=== PATIENT | female | born 1935 | race Caucasian/White ===

== ENCOUNTER → 2018-07-07 | Outpatient (CLI) | payer MEDICARE ==
[~2018-07-07] MED LIST: EUCERIN ORIGIN250 ML TOP; Pred Forte1 ML BOTHEYES; TEMOVATE15 GM TOP; XARELTO15 MG PO
== END | disposition home or self-care (01) ==
LOC: PLD 13:34 → LAB SHORT 13:34
DX: C44.310 Basal cell carcinoma of skin of unspecified parts of face (principal)
CPT/HCPCS: 88305

== ENCOUNTER → 2018-11-03 | Outpatient (CLI) | payer MEDICARE | END | disposition home or self-care (01) | LOC: PLD 12:19 → LAB SHORT 12:19 | DX: D48.5 Neoplasm of uncertain behavior of skin (principal) | CPT/HCPCS: 88305 ==

== ENCOUNTER → 2018-12-01 | Outpatient (CLI) | payer MEDICARE | END | disposition home or self-care (01) | LOC: LAB SHORT 13:52 → PLD 13:52 | DX: C44.612 Basal cell carcinoma of skin of right upper limb, including shoulder (principal) | CPT/HCPCS: 88305 ==

== ENCOUNTER 2019-08-25 12:12 | Day surgery (SDC) | payer MEDICARE ==
[~2019-08-25] VITALS: Ht 160 cm; Wt 71.2 kg
[~2019-08-25 12:12] MED LIST changes: +Aspirin EC81 MG PO; +COENZYME Q10100 MG PO; +FLAX SEED OIL1 EACH PO; +XARELTO20 MG PO
--- NOTE | 2019-08-25 12:57 | NUR ---
08/25/[address] OVALLE THAT THE PT. TOOK XARELTO 08/23, ASA 08/25 DR SAYS OK.
[2019-08-25] MEDS ORDERED: GENPREOPSU (13:09)
--- NOTE | 2019-08-25 14:39 | NUR ---
08/25/19 1439 Ofelia Trent 1ML NORMAL SALINE USED TO ELEVATE SIGMOID POLYP
== END 2019-08-25 15:15 | disposition home or self-care (01) ==
LOC: ORSCSDS 12:12
PROVIDERS: Internal Medicine Gastroenterology
PROC: 0D5N8ZZ Destruction of Sigmoid Colon, Via Natural or Artificial Opening Endoscopic (ICD-10-PCS; principal; 2019-08-25 14:00)
PROC: 0DBN8ZX Excision of Sigmoid Colon, Via Natural or Artificial Opening Endoscopic, Diagnostic (ICD-10-PCS; principal; 2019-08-25 14:00)
PROC: 0DJ08ZZ Inspection of Upper Intestinal Tract, Via Natural or Artificial Opening Endoscopic (ICD-10-PCS; principal; 2019-08-25 14:00)
DX: R19.5 Other fecal abnormalities (principal); D12.5 Benign neoplasm of sigmoid colon; Q27.33 Arteriovenous malformation of digestive system vessel; K44.9 Diaphragmatic hernia without obstruction or gangrene; K64.8 Other hemorrhoids; K64.4 Residual hemorrhoidal skin tags; Z79.899 Other long term (current) drug therapy; Z79.01 Long term (current) use of anticoagulants; G47.33 Obstructive sleep apnea (adult) (pediatric); Z79.82 Long term (current) use of aspirin
CPT/HCPCS: 88305; J2704; J7120

== ENCOUNTER → 2020-04-14 | Outpatient (CLI) | payer MEDICARE ==
[~2020-04-14] MED LIST changes: +GENPREOPSU
== END | disposition home or self-care (01) ==
LOC: PLD 10:50 → LAB SHORT 10:50
DX: D48.5 Neoplasm of uncertain behavior of skin (principal)
CPT/HCPCS: 88305

== ENCOUNTER → 2020-05-03 | Outpatient (CLI) | payer MEDICARE | END | disposition home or self-care (01) | LOC: LAB SHORT 15:21 → PLD 15:21 | DX: C44.612 Basal cell carcinoma of skin of right upper limb, including shoulder (principal) | CPT/HCPCS: 88305 ==

== ENCOUNTER → 2021-04-19 | Outpatient (CLI) | payer MEDICARE | END | disposition home or self-care (01) | LOC: LAB SHORT 12:30 → LAB 12:30 | DX: D48.5 Neoplasm of uncertain behavior of skin (principal) | CPT/HCPCS: 88305 ==

== ENCOUNTER → 2021-10-24 | Outpatient (CLI) | payer MEDICARE | END | disposition home or self-care (01) | LOC: LAB 08:26 → PLD 08:26 → LAB SHORT 08:26 | DX: D48.5 Neoplasm of uncertain behavior of skin (principal) | CPT/HCPCS: 88305 ==

== ENCOUNTER 2021-12-05 17:09 | Emergency (ER) | payer MEDICARE ==
[~2021-12-05] VITALS: Ht 160 cm; Wt 73.5 kg
== END 2021-12-05 20:40 | disposition home or self-care (01) ==
LOC: ER 17:09
DX: S01.81XA Laceration without foreign body of other part of head, initial encounter (principal); W18.30XA Fall on same level, unspecified, initial encounter; Y92.9 Unspecified place or not applicable; Z23 Encounter for immunization; Z88.5 Allergy status to narcotic agent; Z79.82 Long term (current) use of aspirin; Z79.52 Long term (current) use of systemic steroids; Z79.01 Long term (current) use of anticoagulants
CPT/HCPCS: 70450; 90714

== ENCOUNTER → 2022-05-01 | Outpatient (CLI) | payer MEDICARE | LOC: PLD 08:18 → LAB SHORT 08:18 → LAB 08:18 | DX: L57.0 Actinic keratosis (principal) | CPT/HCPCS: 88305 ==

== ENCOUNTER → 2022-10-30 | Outpatient (CLI) | payer MEDICARE | LOC: LAB 07:43 → PLD 07:43 → LAB SHORT 07:43 | DX: D48.5 Neoplasm of uncertain behavior of skin (principal) | CPT/HCPCS: 88305 ==